=== PATIENT | male | born 1955 | race Caucasian/White ===

== ENCOUNTER 2022-12-01 11:43 | Outpatient (CLI) | payer SELFPAY | END 2022-12-01 11:44 | disposition home or self-care (01) | PROVIDERS: PCP Emergency Medicine; Visit Provider Emergency Medicine | DX: R63.4 Abnormal weight loss (principal); D64.9 Anemia, unspecified; M54.9 Dorsalgia, unspecified; R13.10 Dysphagia, unspecified | CPT/HCPCS: 80076; 82728 ==

== ENCOUNTER 2022-12-02 08:07 | Outpatient (CLI) | payer MEDICAID, SELFPAY | END 2022-12-02 08:08 | disposition home or self-care (01) | LOC: NFLDREF 12-03 10:14 | PROVIDERS: PCP Emergency Medicine; Referring Provider Emergency Medicine; Visit Provider Emergency Medicine | DX: M54.9 Dorsalgia, unspecified (principal); R63.4 Abnormal weight loss; D64.9 Anemia, unspecified | CPT/HCPCS: 87086 ==

== ENCOUNTER 2022-12-06 18:42 | Inpatient (IN) | payer MEDICARE, OTHER, MEDICAID, SELFPAY ==
[2022-12-06 18:55] VITALS: BP 92/61; PULSE 110; RESP 20; TEMP 36.2; O2SAT 97; BMI 15.8
--- NOTE | 2022-12-06 20:02 | ED.GENADULT ---
HPI - General Adult General Time Seen by Provider: 20:02 Date Seen: 12/06/22 Chief complaint: Nausea/Vomiting Stated complaint: Incontinence that is unusual Time Seen by Provider: 12/06/22 19:58 Source: patient, family and RN notes reviewed Limitations: no limitations History of Present Illness HPI narrative: Jeff is a 67-year-old male accompanied by his daughter chula for concern of gagging that is been happening without eating. She endorses that he is scheduled to have an EGD here this week. He is a very cachectic appearing person, they state he has been losing weight. He has had 1 scheduled visit with his primary care provider that he just established with. He is a long-term smoker. He states he had a flu in July, COVID in August, contacted pneumonia after that and is just had generalized decline. He states food tastes good. He endorses some difficulty with swallowing at times, maybe worse lately. His daughter feels that he is gagging the without swallowing. He is quite weak. I did ask about gait abnormalities in it sounds that is more weakness that he is complaining about. He denies any vomiting, no diarrhea, no blood in stools. He has reportedly had some urinary incontinence. He has had a history of alcohol use looking at his records as well. His daughter wants to know if he will be admitted, reviewed with her it depends on the workup. We discussed that gagging may ultimately leading needing the EGD done which I will not be able to do for her chula. Discussed that sometimes patients will need to go on to swallow studies, again this is not emergent procedure. We can take a look at basic labs. With the urinary incontinence possible gait abnormality his smoking history would consider a head CT. We certainly can obtain labs. I have not had a chance to go through his history or records that we have in our system at this point due to the volume and acuity in the ED. Related Data Previous Rx's Medication Instructions Recorded hydrocodone 5 mg-acetaminophen 325 1 tab PO Q4H PRN pain #30 tabs 12/01/22 mg tablet hydrocodone 5 mg-acetaminophen 300 1 tab PO Q4-6H PRN pain #30 tabs 12/02/22 mg tablet Allergies Allergy/AdvReac Type Severity Reaction Status Date / Time Poultry Allergy Severe Verified 12/01/22 11:03 Review of Systems Status of ROS: Reports: 6 or more systems reviewed and unremarkable except as noted in History and below [facility] Medical History (Updated 12/06/22 @ 22:35 by Cindy Coto MD) Acute pain ?R52 - Pain, unspecified (ICD-10) Anemia ?D64.9 - Anemia, unspecified (ICD-10) Back pain ?M54.9 - Dorsalgia, unspecified (ICD-10) Cervical adenopathy ?R59.0 - Localized enlarged lymph nodes (ICD-10) Compression fracture Dysphagia ?R13.10 - Dysphagia, unspecified (ICD-10) Elevated alkaline phosphatase level ?R74.8 - Abnormal levels of other serum enzymes (ICD-10) Elevated liver transaminase level ?R74.01 - Elevation of levels of liver transaminase levels (ICD-10) Hypercalcemia ?E83.52 - Hypercalcemia (ICD-10) Moderate alcohol consumption ?Z78.9 - Other specified health status (ICD-10) Multiple falls ?R29.6 - Repeated falls (ICD-10) Renal insufficiency ?N28.9 - Disorder of kidney and ureter, unspecified (ICD-10) Smokes with greater than 40 pack year history ?F17.210 - Nicotine dependence, cigarettes, uncomplicated (ICD-10) Unintentional weight loss ?R63.4 - Abnormal weight loss (ICD-10) Social History Smoking Status: Current every day smoker How often do you have a drink containing alcohol: never AUDIT-C Alcohol total score: 0 Non-prescribed substance use: denies use Exam Const: Vital Signs, click to edit/add: Vital Signs - 24 hr 12/06/22 18:55 Temperature 97.1 F L Pulse Rate [Pulse Oximeter] 110 H Respiratory Rate 20 Blood Pressure [Ri ght Upper Arm] 92/61 Pulse Oximetry 97 Oxygen Delivery Me thod Room Air Documenting provider has reviewed patient's vital signs: yes Common normals: no apparent distress, oriented x3, no limitations and alert General appearance: cooperative, comfortable, ill appearing and frail appearing Nutritional appearance: cachectic Other: He is alert, conversive, talking and joking with his daughter. Seems bright. HENMT: Common normals: normocephalic, head/scalp atraumatic, hearing grossly normal bilaterally, external ears normal, external nose normal and moist oral mucous membranes Head and scalp: normocephalic and atraumatic Nose: external nose normal External ear: external ears normal Eye: Common normals: PERRL, EOMs intact bilaterally, conjunctivae normal and no scleral icterus Conjunctiva: conjunctiva(e) normal Pupil: PERRL Neck & C-Spine: Common normals: full ROM, no lymphadenopathy, supple and thyroid normal Thyroid: thyroid normal Other: Has clavicles are significantly protruding and skin is sunken around the clavicles, no cervical adenopathy or adenopathy or masses noted around the clavicles or neck area. Chest: Common normals: inspection of chest normal and palpation of chest normal Resp: Common normals: normal respiratory effort, no retractions, no use of accessory muscles and clear to auscultation bilaterally (Distant breath sounds) Auscultation: clear to auscultation bilaterally (Distant breath sounds) Cardio: Common normals: regular rate, regular rhythm, S1 normal heart sound, S2 normal heart sound, no gallops, no clicks and no murmurs Rate: regular rate Rhythm: regular rhythm Heart sounds: S1 normal and S2 normal GI: Common normals: Normal to inspection, nondistended, normoactive bowel sounds present (Caved in abdomen), soft to palpation, non-tender and no hepatosplenomegaly Palpation: soft and no hepatosplenomegaly Extremity: Common normals: no pedal edema Neuro: Common normals: oriented x3 and moves all extremities Sensorium/orientation: alert Course Course Hospital Course: Have reviewed with his daughter that I am unlikely to fix weight loss issues, gagging in this ED visit. We can certainly look into neurological causes, plan on head CT. Will do full compliment of labs. Will have nursing do bladder scan to look for obstructive uropathy (or neurogenic bladder). Reevaluation(s) Reevaluation #1: Have reviewed with patient that the bladder scan is showing over 800ml; plan will be to put Suresh in place. Most common cause of this in his age group would be prostate obstruction. He agrees with plan, admits that he is feeling fullness in pelvic region. Time: 20:48 Consultations Consultation #1: The hospitalist Dr. Carmichael is currently in with the patient. We did review the elevated calcium, cachexia, urinary retention. Once the catheter was in, patient had return of very dark looking urine. He is likely dehydrated. When I did get his calcium level back at 12.1, did order nursing staff for IV placement and a L of IV fluids over 2 hours. This obviously will need more workup. I see his alkaline phosphatase is elevated as well. Have reviewed with Dr. Cavazos the head CT that I ordered, both of us feel at this time it does not need to happen and thus was canceled. Time: 22:32 Vital Signs Vital signs: Initial Vital Signs Temperature 97.1 F L 12/06/22 18:55 Temperature Source Temporal Artery Scan 12/06/22 18:55 Pulse Rate 110 H 12/06/22 18:55 Respiratory Rate 20 12/06/22 18:55 Blood Pressure 92/61 12/06/22 18:55 Blood Pressure Mean 71 12/06/22 18:55 Blood Pressure Position Sitting 12/06/22 18:55 Pulse Oximetry 97 12/06/22 18:55 Oxygen Delivery Method Room Air 12/06/22 18:55 Vital Signs Temperature 97.1 F L 12/06/22 18:55 Pulse Rate 110 H 12/06/22 18:55 Respiratory Rate 20 12/06/22 18:55 Blood Pressure 92/61 12/06/22 18:55 Pulse Oximetry 97 12/06/22 18:55 Oxygen Delivery Method Room Air 12/06/22 18:55 Temperature 97.1 F L 12/06/22 18:55 Pulse Rate 110 H 12/06/22 18:55 Respiratory Rate 20 12/06/22 18:55 Blood Pressure 92/61 12/06/22 18:55 Pulse Oximetry 97 12/06/22 18:55 Oxygen Delivery Method Room Air 12/06/22 18:55 Medical Decision Making Lab Data Lab results reviewed: Yes I reviewed the patient's lab results Labs: Lab Results 12/06/22 12/06/22 Range/Units 20:27 22:07 WBC 11.25 H (4.50-11.00) K/uL RBC 3.21 L (4.30-5.90) m/uL Hgb 10.0 L (13.5-17.5) gm/dL Hct 30.9 L (37.0-53.0) % MCV 96 (80-100) fL MCH 31 (26-34) pg MCHC 32 (32-36) gm/dL RDW Coeff of [place] 19.0 H (11.5-15.5) % Plt Count 226 (140-440) K/uL Neut % (Auto) 78.8 H (42.0-72.0) % Lymph % (Auto) 12.9 L (20-44) % [place] % (Auto) 4.9 (0.0-11.0) % Eos % (Auto) 2.8 (0.0-7.0) % Baso % (Auto) 0.2 (0.0-3.0) % Neut # (Auto) 8.90 H (1.7-7.0) K/uL Lymph # (Auto) 1.50 (0.90-2.90) K/uL [place] # (Auto) 0.60 (0.00-0.90) K/UL Eos # (Auto) 0.30 (0.00-0.50) K/uL Baso # (Auto) 0.00 (0.00-0.30) K/uL Sodium 134 L (135-149) mmol/L Potassium 5.2 H (3.6-5.1) mmol/L Chloride 99 (96-114) mmol/L Carbon Dioxide 25 (20-32) mmol/L BUN 57 H (7-30) mg/dL Creatinine 1.7 H (0.5-1.5) mg/dL Estimated Creat Clear 30.57 Estimated GFR 44 ml/min Glucose 111 (60-115) mg/dL Calcium 12.1 H* (8.4-10.6) mg/dL Total Bilirubin 1.1 (0.1-1.5) mg/dL AST 144 H (12-35) U/L ALT 28 (4-50) U/L Alkaline Phosphatase 468 H (40-150) U/L Total Protein 7.1 (6.0-8.3) g/dL Albumin 3.9 (3.3-5.0) g/dL Urine Color [place] A (Yellow) Urine Appearance Clear (Clear) Urine pH 5.5 (5.0-8.5) Ur Specific [place] 1.025 (1.000-1.030) Urine Protein Trace A (Negative) Urine Glucose (UA) Negative (Negative) Urine Ketones Negative (Negative) Urine Blood Negative (Negative) Urine Nitrite Negative (Negative) Urine Bilirubin 1+ A (Negative) Urine Urobilinogen 0.2 (0.2-1.0) Ur Leukocyte Esterase Negative (Negative) Urine RBC 0-2 (0-2) Urine WBC 0-2 (0-5) Ur Squamous Epith Cells None (None-Few) Other Sediment SPERM (None) Urine Bacteria Few A (None) Discharge Plan Discharge Clinical Impression: Weakness, Hypercalcemia, Acute urinary retention Patient Disposition: Admitted As Inpatient Condition: Unchanged Prescriptions: No Action hydrocodone-acetaminophen 5-325 mg tablet 1 tab PO Q4H PRN (Reason: pain) Qty: 30 0RF hydrocodone-acetaminophen 5-300 mg tablet 1 tab PO Q4-6H PRN (Reason: pain) Qty: 30 0RF Follow Up/Referrals: Lisa Sewell MD [Primary Care Provider] -
[2022-12-06 20:33] LABS: Basophils Percent Auto 0.2 % (0.0-3.0); Eosinophils Percent Auto 2.8 % (0.0-7.0); Hematocrit 30.9 % (37.0-53.0); Immature Granulocytes Pct Auto 0.4 %; Lymphocytes Percent Auto 12.9 % (20-44); Mean Corpuscular HGB Conc 32 gm/dL (32-36); Mean Corpuscular Hemoglobin 31 pg (26-34); Mean Corpuscular Volume 96 fL (80-100); Monocytes Percent Auto 4.9 % (0.0-11.0); Neutrophils Percent Auto 78.8 % (42.0-72.0); Platelet Count* 226 K/uL (140-440); Red Blood Count 3.21 m/uL (4.30-5.90); White Blood Count* 11.25 K/uL (4.50-11.00)
[2022-12-06 20:43] LABS: Slide Review Reflex No
[2022-12-06 20:46] LABS: Albumin* 3.9 g/dL (3.3-5.0); Chloride* 99 mmol/L (96-114)
[2022-12-06 20:47] LABS: Potassium* 5.2 mmol/L (3.6-5.1); Sodium* 134 mmol/L (135-149)
[2022-12-06 20:49] LABS: Alkaline Phosphatase* 468 U/L (40-150); Aspartate Amino Transferase* 144 U/L (12-35); Bilirubin Total* 1.1 mg/dL (0.1-1.5); Carbon Dioxide* 25 mmol/L (20-32); Creatinine* 1.7 mg/dL (0.5-1.5); Est. Creatinine Clearance* 30.57; Estimated Glomerular Filt Rate 44 ml/min; Total Protein* 7.1 g/dL (6.0-8.3)
[2022-12-06 20:50] LABS: Alanine Aminotransferase* 28 U/L (4-50); Blood Urea Nitrogen* 57 mg/dL (7-30); Glucose* 111 mg/dL (60-115)
[2022-12-06 20:56] LABS: Calcium* 12.1 mg/dL (8.4-10.6)
[2022-12-06] MEDS: 0.9 % SODIUM CHLORIDE 1000 ml 1,000 ML 500 ML IV (22:13)
[2022-12-06 22:41] LABS: Appearance Urine Clear (Clear); Bilirubin Urine 1+ (Negative); Blood Urine Negative (Negative); Color Urine Orange (Yellow); Glucose Urine Negative (Negative); Ketones Urine Negative (Negative); Leukocyte Esterase Urine Negative (Negative); Nitrite Urine Negative (Negative); Protein Urine Trace (Negative); Specific Gravity Urine 1.025 (1.000-1.030); Urobilinogen Urine 0.2 (0.2-1.0); pH Urine 5.5 (5.0-8.5)
[2022-12-06 23:02] LABS: Bacteria Urine Few; Other Sediment Urine SPERM; RBC Urine 0-2 (0-2); WBC Urine 0-2 (0-5)
[2022-12-06 23:05] VITALS: PULSE 103
--- NOTE | 2022-12-06 23:21 | PM.IMHP1 ---
Hospitalist- H&P: HPI History of Present Illness Date Seen: 12/06/22 Chief complaint: Incontinence that is unusual Narrative: Jeff Mcgee is a 67 year old male with limited past medical history presenting with multiple concerns have developed since about August of this year. Reports that he had a COVID infection in August of this year. Since then he has lost about 40 lb of weight due to a poor appetite and difficulties with swallowing. He also reports symptoms of heartburn. More recently he has been having troubles with urination and emptying his bladder. He is getting weaker to the point that he is having trouble standing and walking and has had a couple falls recently. 1 of those falls occurred causing a back injury and probable compression fracture at L1. He has also had numbness and pain going into the left buttock perineum and proximal left thigh area. He attributes this to his back injury as well. In September he had a respiratory infection. His daughter gave him some leftover clindamycin which worked and he got better right away. He has not had any recurrent respiratory illness or fevers. Review of Systems Narrative: Patient reports prior to August he was doing quite well. He reports none of his symptoms that he is currently bothered by were significant issues for him prior to August. Multiple symptoms outlined above have developed since then [facility] Medical History (Updated 12/06/22 @ 23:48 by Diaz Carmichael MD) Acute kidney injury superimposed on chronic kidney disease ?N17.9 - Acute kidney failure, unspecified (ICD-10) ?N18.9 - Chronic kidney disease, unspecified (ICD-10) Acute pain ?R52 - Pain, unspecified (ICD-10) Anemia ?D64.9 - Anemia, unspecified (ICD-10) Back pain ?M54.9 - Dorsalgia, unspecified (ICD-10) Cervical adenopathy ?R59.0 - Localized enlarged lymph nodes (ICD-10) Compression fracture Dysphagia ?R13.10 - Dysphagia, unspecified (ICD-10) Elevated alkaline phosphatase level ?R74.8 - Abnormal levels of other serum enzymes (ICD-10) Elevated ferritin ?R79.89 - Other specified abnormal findings of blood chemistry (ICD-10) Elevated liver transaminase level ?R74.01 - Elevation of levels of liver transaminase levels (ICD-10) Hypercalcemia ?E83.52 - Hypercalcemia (ICD-10) Moderate alcohol consumption ?Z78.9 - Other specified health status (ICD-10) Multiple falls ?R29.6 - Repeated falls (ICD-10) Renal insufficiency ?N28.9 - Disorder of kidney and ureter, unspecified (ICD-10) Severe malnutrition ?E43 - Unspecified severe protein-calorie malnutrition (ICD-10) Smokes with greater than 40 pack year history ?F17.210 - Nicotine dependence, cigarettes, uncomplicated (ICD-10) Unintentional weight loss ?R63.4 - Abnormal weight loss (ICD-10) Family History (Updated 12/06/22 @ 23:32 by Diaz Carmichael MD) Mother Coronary artery disease Diabetes Brother Kidney malignancy Social History (Updated 12/06/22 @ 23:33 by Diaz Carmichael MD) Narrative: Patient [place] with his daughter, her partner and her child. Previously smoked 2 packs cigarettes per day but recently has cut down to about a half pack of cigarettes per day. Drinks alcohol fairly regularly. Daughter thinks it is about 2 bottles of wine per week. Smoking Status: Current every day smoker How often do you have a drink containing alcohol: never AUDIT-C Alcohol total score: 0 Non-prescribed substance use: denies use Meds Home Medications and Allergies Home Medication Comments: Occasional use of acetaminophen or aspirin. Recently started on [place] for back pain taking to 5/325 tablets every 6 hours Allergies Allergy/AdvReac Type Severity Reaction Status Date / Time Poultry Allergy Severe Verified 12/01/22 11:03 Exam Narrative: Exam Narrative: He is cachectic appearing. He is able to give his own history with some assistance from his daughter. Head is atraumatic. Eyes are normal. Sclerae nonicteric. Oropharynx with dry mucous membranes. Neck is supple without mass or adenopathy. Respirations are clear to auscultation. He has diminished breath sounds in all lung mcguire. Cardiovascular: S1, S2, regular rate and rhythm. Abdomen: Bowel sounds active. Abdomen is soft without tenderness or mass. External genitalia normal. Suresh catheter is draining a very concentrated urine without marked abnormal sediment or obvious blood. Skin is without rash or breakdown. He moves all 4 extremities well. Strength in his lower extremities is symmetric in hip flexion, knee flexion extension, ankle dorsiflexion and plantar flexion. Deep tendon reflexes are 2/4 at the patellar tendons bilaterally and 1 over 4th the Achilles bilaterally. Subjectively intact sensation in his lower legs. Describes subjectively decreased sensation in left buttock near the perineum and proximal thigh. Const: Vital Signs, click to edit/add: Vital Signs - 24 hr 12/06/22 18:55 Temperature 97.1 F L Pulse Rate [Pulse Oximeter] 110 H Respiratory Rate 20 Blood Pressure [Ri ght Upper Arm] 92/61 Pulse Oximetry 97 Oxygen Delivery Me thod Room Air Documenting provider has reviewed patient's vital signs: yes Hospitalist - H&P: Result Labs Labs: Short CBC 12/06/22 Range/Units 20:27 WBC 11.25 H (4.50-11.00) K/uL Hgb 10.0 L (13.5-17.5) gm/dL Hct 30.9 L (37.0-53.0) % Plt Count 226 (140-440) K/uL BMP 12/06/22 20:27 Sodium 134 L Potassium 5.2 H Chloride 99 Carbon Dioxide 25 BUN 57 H Creatinine 1.7 H Glucose 111 Calcium 12.1 H* Liver Function 12/06/22 Range/Units 20:27 Total Bilirubin 1.1 (0.1-1.5) mg/dL AST 144 H (12-35) U/L ALT 28 (4-50) U/L Alkaline Phosphatase 468 H (40-150) U/L Albumin 3.9 (3.3-5.0) g/dL Urine 12/06/22 Range/Units 22:07 Urine Color [place] A (Yellow) Urine Appearance Clear (Clear) Urine pH 5.5 (5.0-8.5) Ur Specific [place] 1.025 (1.000-1.030) Urine Protein Trace A (Negative) Urine Glucose (UA) Negative (Negative) Assessment and Plan Assessment and plan (1) Severe malnutrition: Status: Acute (2) Hypercalcemia: Problem comment: Check PTH. Concern for bony malignancy Status: Acute (3) Weakness: Status: Acute (4) Acute urinary retention: Problem comment: Will need Suresh catheter and outpatient follow-up. Check PSA. Start tamsulosin Status: Acute (5) Elevated liver transaminase level: Problem comment: Elevated AST may represent liver disease from alcohol or metastatic disease. Status: Acute (6) Elevated alkaline phosphatase level: Problem comment: I favor bony disease over obstructive liver disease. Consider liver imaging Status: Acute (7) Compression fracture: Problem comment: Radiographs from last week show mild L1 compression fracture. At some point may need MRI to better characterize neurologic signs and symptoms as well as pain and looking for metastatic disease Status: Acute (8) Acute kidney injury superimposed on chronic kidney disease: Status: Acute (9) Moderate alcohol consumption: Problem comment: Alcohol withdrawal protocol. With multiple other serious medical problems , including liver disease, advise abstinence Status: Acute (10) Smokes with greater than 40 pack year history: Problem comment: Recommend cessation. Probable underlying COPD Status: Acute (11) Anemia: Problem comment: Needs further assessment. Concern for bone marrow disease Status: Acute (12) Multiple falls: Problem comment: Patient getting quite weak. PT and OT to assess. Status: Acute (13) Dysphagia: Problem comment: Upper GI x-ray initial evaluation. Scheduled for outpatient endoscopy in 3 days Status: Acute (14) Unintentional weight loss: Problem comment: If his nutrition does not improve his overall prognosis is very poor Status: Acute (15) Elevated ferritin: Status: Acute (16) Acute pain: Problem comment: Patient having acute mid back pain in the lower thoracic and upper lumbar spine. I suspect more bone disease than seen on plain films done last week showing mild L1 compression fracture Status: Acute Plan Patient is admitted to the hospital for evaluation of multiple problems noted above. Acutely will need to address hypercalcemia and urinary retention. His severe malnutrition will need at least initial evaluation to understand why he is not eating. I am concerned about bony malignancy with his hypercalcemia, spine pain, anemia. Elevated ferritin may be due to liver disease. Consider imaging of the liver with ultrasound or MRI if evaluating for iron overload. With IV fluids and Suresh catheter expect calcium and creatinine to improve. Needs further evaluation for bone disease. Total time spent today is 90 minutes, 50 minutes in coordination of care and discussing with patient and daughter ongoing evaluation management of these multiple medical problems listed above
[2022-12-06 23:38] VITALS: BP 152/90; PULSE 101; RESP 18; TEMP 36.7; O2SAT 98; BMI 16.1
[2022-12-07] VITALS (7 sets, daily range): BP systolic 101–135; BP diastolic 63–88; PULSE 103–120; RESP 16–18; TEMP 36.6–37.7; O2SAT 94–98; BMI 16.1
--- NOTE | 2022-12-07 | CRLHL7_ITS ---
For Patients: As a result of the Century Cures Act, medical imaging exams and procedure reports are released immediately into your electronic medical record. You may view this report before your referring provider. If you have questions, please contact your health care provider. Technique: Single contrast upper GI performed with water-soluble contrast followed by thin barium. Fluoroscopy time 30 seconds. Indication: swallowing difficulties Comparison: None. Findings: Contrast extends from the oropharynx to the stomach and proximal duodenum without obstruction. No aspiration. Tertiary distal esophageal contractions noted. Impression: No obstruction. Dictated by Osmany Talavera MD @ 12/07/2022 10:07:59 AM (Electronically Signed)
[2022-12-07] MEDS: 0.9 % SODIUM CHLORIDE 1000 ml 1,000 ML 150 ML IV ×3 (00:05→13:57)
[2022-12-07] MEDS: PANTOPRAZOLE SODIUM 40 MG INJ IVP (00:05)
[2022-12-07] MEDS: THIAMINE 100 MG TABLET PO (00:05)
--- NOTE | 2022-12-07 06:06 | PC.NURSE ---
Shift note: Pt arrived at the unit at 2300 on wheelchair accompanied by his daughter. Conscious, alert and oriented but complained of weakness. Vital signs recorded was stable except the heart rate which was above 100. Pt had urinary catheter on arrival which appeared patent but oliguric. N/S 1000ml set up at the rate of 150drop/min as prescribed. Pt has been in bed since admission. Denied any pain, cough and SOB. Lab orders drawn this morning due to downtime of expense. Telemetry reading was sinus tach.
[2022-12-07] MEDS: OMEPRAZOLE 20 MG CAPSULE DR PO (06:29)
[2022-12-07 06:35] LABS: Basophils Absolute Auto 0.02 K/uL (0.00-0.30); Basophils Percent Auto 0.2 % (0.0-3.0); Eosinophils Absolute Auto 0.27 K/uL (0.00-0.50); Eosinophils Percent Auto 2.6 % (0.0-7.0); Hematocrit 28.6 % (37.0-53.0); Hemoglobin* 9.3 gm/dL (13.5-17.5); Immature Granulocytes Abs Auto 0.12 K/uL (0.00-0.30); Immature Granulocytes Pct Auto 1.2 %; Lymphocytes Percent Auto 14.3 % (20-44); Mean Corpuscular HGB Conc 33 gm/dL (32-36); Mean Corpuscular Hemoglobin 32 pg (26-34); Mean Corpuscular Volume 97 fL (80-100); Monocytes Percent Auto 5.7 % (0.0-11.0); Platelet Count* 226 K/uL (140-440); RDW Coefficient of Variation % 19.2 % (11.5-15.5); Red Blood Count 2.94 m/uL (4.30-5.90); White Blood Count* 10.25 K/uL (4.50-11.00)
[2022-12-07 06:40] LABS: Slide Review Reflex No
[2022-12-07 06:48] LABS: Albumin* 3.5 g/dL (3.3-5.0); Chloride* 105 mmol/L (96-114)
[2022-12-07 06:49] LABS: Potassium* 5.7 mmol/L (3.6-5.1); Sodium* 137 mmol/L (135-149)
[2022-12-07 06:51] LABS: Aspartate Amino Transferase* 137 U/L (12-35); Bilirubin Direct* 0.4 mg/dL (0.0-0.5); Bilirubin Total* 1.1 mg/dL (0.1-1.5); Carbon Dioxide* 25 mmol/L (20-32); Creatinine* 1.5 mg/dL (0.5-1.5); Est. Creatinine Clearance* 34.43; Estimated Glomerular Filt Rate 51 ml/min; Total Protein* 6.4 g/dL (6.0-8.3)
[2022-12-07 06:52] LABS: Alanine Aminotransferase* 27 U/L (4-50); Alkaline Phosphatase* 432 U/L (40-150); Blood Urea Nitrogen* 54 mg/dL (7-30); Calcium* 11.4 mg/dL (8.4-10.6); Glucose* 90 mg/dL (60-115); Magnesium* 2.1 mg/dL (1.5-2.6)
[2022-12-07 06:59] LABS: Iron* 58 ug/dL (49-181)
[2022-12-07 07:08] LABS: Percent Iron Saturation 23 % (20-50); Total Iron Binding Capacity 256 ug/dL (261-462)
[2022-12-07 07:13] LABS: Troponin I* < 0.01 ng/mL (0.01-0.04)
[2022-12-07 07:19] LABS: C Reactive Protein* 7.2 mg/dL (0.5-1.0)
[2022-12-07 07:28] LABS: PTH Intact* 8 pg/mL (15-65)
[2022-12-07 07:47] LABS: PSA Diagnostic* 1.64 ng/mL (0.10-4.00)
--- NOTE | 2022-12-07 08:19 | CRLHL7_ITS ---
For Patients: As a result of the 21st Century Cures Act, medical imaging exams and procedure reports are released immediately into your electronic medical record. You may view this report before your referring provider. If you have questions, please contact your health care provider. INDICATION: Weight loss and hypercalcemia COMPARISON: No prior transaxial studies available for comparison TECHNIQUE: CT examination of the chest abdomen and pelvis was performed following the uneventful intravenous administration of 54 cc of Isovue 370. Thin section axial images were obtained from the thoracic inlet through the pubic symphysis. Oral contrast was not administered. Sagittal and coronal reformatted imaging was performed Please note that all CT scans at this facility use dose modulation, iterative reconstruction, and/or weight-based dosing when appropriate to reduce radiation dose to as low as reasonably achievable. FINDINGS: CHEST: There are prominent mediastinal lymph nodes primarily high right paratracheal and pretracheal. These are likely malignant. No pericardial effusion. Significant emphysema. Biapical pleural parenchymal scarring. Very small right upper lobe nodule measuring 3 millimeters which could be a metastatic deposit. There is no definite finding above lung primary. No pleural effusion or pneumothorax. ABDOMEN AND PELVIS: LIVER/BILIARY SYSTEM:There are too numerous to count hepatic masses consistent with metastatic disease to the liver. This does not appear to represent a multifocal hepatocellular carcinoma.The gallbladder appears normal ADRENALS: Difficult to ascertain due to surrounding adenopathy. No obvious adrenal mass KIDNEYS, URETERS and BLADDER:The kidneys appear normal. Suresh catheter in the bladder. The bladder is distended suggesting at either the Suresh is clogged or clamped. SPLEEN:Normal appearance. PANCREAS: Difficult to identify as a separate structure due to surrounding adenopathy. I do question a vague mass in the body and tail of the pancreas on series 2, image 165. RETROPERITONEUM and MESENTERY: Extensive lymphadenopathy in the entirety of the retroperitoneum, the mesentery and the pelvis. GASTROINTESTINAL SYSTEM: There is no evidence of diverticulitis, colitis, mechanical obstruction, or appendicitis. The small bowel as visualized appears normal.No obvious GI primary or mechanical obstruction. PELVIS: No mass, adenopathy or free fluid. OSSEOUS STRUCTURES and ABDOMINAL WALL: Xzv-[id number]-am-count lytic bone lesions. This involves every vertebral body, some of the ribs and extensive areas of the pelvis. There is a pathologic fracture of L1 which is a minor compression deformity with minimal retropulsion of the posterior wall by about 2 millimeters. There is also probably a pathologic fracture of the mid sacrum. No other findings strongly suggesting pathologic fracture. OTHER: No free fluid or free air. Discussed with Dr. Sindy Nascimento at 12:40 p.m. on December 07, 2022 IMPRESSION: 1. CHEST: Significant emphysema. Small right upper lobe nodule could be metastatic. No definite findings of a lung primary. Normal pleural spaces. disease. Extensive lymphadenopathy in the abdomen and pelvis. While this may be due to a lymphoproliferative disorder, the diffuse lytic bone disease described below is more typical of metastatic carcinoma than and lymphoproliferative disorder. I also question fullness of the pancreatic body and tail though this may be a adjacent lymphadenopathy. This raises the possibility of a pancreatic primary 3. OSSEOUS STRUCTURES: Lytic bone disease involving virtually every vertebral body, the sacrum and much of the pelvis. Pathologic fracture of L1 with mild loss of height and minimal retropulsion of the posterior wall. Probably actual or impending pathologic fracture of the mid sacrum. Please note that all CT scans at this facility use dose modulation, iterative reconstruction, and/or weight-based dosing when appropriate to reduce radiation dose to as low as reasonably achievable. Dictated by Tray Lala MD @ 12/07/2022 12:48:29 PM (Electronically Signed)
[2022-12-07 09:19] LABS: Thyroid Stimulating Hormone* 0.892 uIU/mL (0.270-4.20)
[2022-12-07] MEDS: FUROSEMIDE 40 MG TABLET PO (09:28)
[2022-12-07] MEDS: FOLIC ACID 1 MG TABLET PO (09:28)
[2022-12-07] MEDS: MULTIVITAMIN/MINERALS 1 TABLET 1 TAB PO (09:28)
[2022-12-07] MEDS: OXYCODONE 5 MG TABLET PO ×2 (09:28→14:06)
[2022-12-07] MEDS: TAMSULOSIN HCL 0.4 MG CAPSULE PO (09:28)
--- NOTE | 2022-12-07 13:13 | P.IMPN_ITS ---
Progress Note: A&P Assessment and plan (1) Metastatic disease: Problem details: - unknown primary (? lymphoproliferative vs pancreatic) - long discussion with patient and daughter; at this time, Amos does not want to pursue active treatment or diagnostic procedures, will ask SW to see to discuss hospice - given L1 fracture and impending sacral fracture; minimize ambulation, keep murry in, use bedside commode - Fentanyl patch to be placed 12/07 Status: Acute (2) Severe malnutrition: Status: Acute Plan - per above - likely home tomorrow with hospice - daughter Maribel updated at bedside, questions answered Subjective Date Seen: 12/07/22 Interval history: No acute events overnight. Amos has no concerns for the hospitalist team. Given his lab abnormalities and presenting complaint, CT scan of chest abdomen and pelvis was ordered for today. Exam Narrative: Exam Narrative: GEN: Alert and oriented, answering questions appropriately. Cachectic and appears chronically ill HEENT: EOMIs bilaterally, no scleral icterus CV: Mild sinus tachycardia (rate 100s) with soft systolic murmur R: No concerning wheezing Ext: Thin, no concerning edema Skin: No concerning skin lesions or rashes on exposed skin Neuro: Nonfocal Psych: Appropriate Const: Vital Signs, click to edit/add: Vital Signs - 24 hr 12/06/22 18:55 12/06/22 23:05 12/06/22 23:38 Temperature 97.1 F L 98.1 F Pulse Rate 103 H Pulse Rate [Pulse Oximeter] 110 H Pulse Rate [Right Pulse Oximeter] 101 H Respiratory Rate 20 18 Blood Pressure [Ri ght Arm] 152/90 H Blood Pressure [Ri ght Upper Arm] 92/61 Pulse Oximetry 97 98 Oxygen Delivery Me thod Room Air Room Air 12/07/22 03:00 12/07/22 07:15 12/07/22 07:45 Temperature 97.8 F Pulse Rate 103 H Pulse Rate [Pulse Oximeter] Pulse Rate [Right Pulse Oximeter] 103 H 106 H Respiratory Rate 18 18 Blood Pressure [Ri ght Arm] 135/88 Blood Pressure [Ri ght Upper Arm] Pulse Oximetry 98 Oxygen Delivery Me thod Room Air 12/07/22 07:45 Temperature 98.9 F Pulse Rate Pulse Rate [Pulse Oximeter] Pulse Rate [Right Pulse Oximeter] 106 H Respiratory Rate 18 Blood Pressure [Ri ght Arm] 122/71 Blood Pressure [Ri ght Upper Arm] Pulse Oximetry 97 Oxygen Delivery Me thod Room Air Labs Labs: Laboratory Results - last 24 hr 12/06/22 12/06/22 12/07/22 20:27 22:07 06:11 WBC 11.25 H 10.25 RBC 3.21 L 2.94 L Hgb 10.0 L 9.3 L Hct 30.9 L 28.6 L MCV 96 97 MCH 31 32 MCHC 32 33 RDW Coeff of [place]abelle 19.0 H 19.2 H Plt Count 226 226 Neut % (Auto) 78.8 H 76.0 H Lymph % (Auto) 12.9 L 14.3 L [place] % (Auto) 4.9 5.7 Eos % (Auto) 2.8 2.6 Baso % (Auto) 0.2 0.2 Neut # (Auto) 8.90 H 7.80 H Lymph # (Auto) 1.50 1.50 [place] # (Auto) 0.60 0.60 Eos # (Auto) 0.30 0.27 Baso # (Auto) 0.00 0.02 Sodium 134 L 137 Potassium 5.2 H 5.7 H Chloride 99 105 Carbon Dioxide 25 25 BUN 57 H 54 H Creatinine 1.7 H 1.5 Estimated Creat Clear 30.57 34.43 Estimated GFR 44 51 Glucose 111 90 Calcium 12.1 H* 11.4 H Magnesium 2.1 Iron 58 TIBC 256 L % Saturation 23 Total Bilirubin 1.1 1.1 Direct Bilirubin 0.4 AST 144 H 137 H ALT 28 27 Alkaline Phosphatase 468 H 432 H Troponin I < 0.01 L C-Reactive Protein 7.2 H Total Protein 7.1 6.4 Albumin 3.9 3.5 PSA Diagnostic 1.64 TSH 0.892 PTH Intact 8 L Urine Color [place] A Urine Appearance Clear Urine pH 5.5 Ur Specific [place] 1.025 Urine Protein Trace A Urine Glucose (UA) Negative Urine Ketones Negative Urine Blood Negative Urine Nitrite Negative Urine Bilirubin 1+ A Urine Urobilinogen 0.2 Ur Leukocyte Esterase Negative Urine RBC 0-2 Urine WBC 0-2 Ur Squamous Epith Cells None Other Sediment SPERM Urine Bacteria Few A IMPRESSION: 1. CHEST: Significant emphysema. Small right upper lobe nodule could be metastatic disease. No definite findings of a lung primary. Normal pleural spa marielos. 2. Extensive lymphadenopathy in the abdomen and pelvis. While this may be due to a lymphoproliferative disorder, the diffuse lytic bone disease described below is more typical of metastatic carcinoma than and lymphoproliferative disorder. I also question fullness of the pancreatic body and tail though this may be a adjacent lymphadenopathy. This raises the possibility of a pancreatic primary 3. OSSEOUS STRUCTURES: Lytic bone disease involving virtually every vertebral body, the sacrum and much of the pelvis. Pathologic fracture of L1 with mild loss of height and minimal retropulsion of the posterior wall. Probably actual or impending pathologic fracture of the mid sacrum. Please note that all CT scans at this facility use dose modulation, iterative reconstruction, and/or weight-based dosing when appropriate to reduce radiation dose to as low as reasonably achievable. Dictated by Tray Lala MD @ 12/07/2022 12:48:29 PM
[2022-12-07] MEDS: fentaNYL 12 mcg/hr PATCH 1 PATCH TRANSDERMA (13:57)
--- NOTE | 2022-12-07 14:14 | PC.SOCIAL ---
Met with pt. and daughter Tessie to discuss hospice and end of life care. Pt. lives with his daughter Tessie, her partner and grandchild. Pt. is very accepting of his Dx and states he knew he likely had cancer and is not surprised. Eric plans to take FMLA from work to care for pt. She can get additional assistance from her partner and aunt as needed. Pt. prefers [facility] if they have availability. If not they have no preference. Plan is for discharge tomorrow with Hospice and medical equipment.
--- NOTE | 2022-12-07 14:50 | PC.NURSE ---
VSS AND AFEBRILE. REPORTS BACK PAIN AND GENERALIZED PAIN AND RECEIVED OXYCODONE FOR COMFORT. FENTANYL PATCH APPLIED.
--- NOTE | 2022-12-07 16:08 | PC.SOCIAL ---
[facility] has no availability to admit a new patient the rest of this week. A referral was made to [facility] who will admit pt. to hospice tomorrow at 2pm. Updated pt. and his daughter Maribel and she will arrive at 1pm to transport.
[2022-12-07] MEDS: OXYCODONE 5 MG TABLET 10 MG PO (18:25)
[2022-12-07] MEDS: SODIUM CHLORIDE 0.9 % (FLUSH) 10 ML SYRINGE 5 ML IVF (21:17)
--- NOTE | 2022-12-07 22:09 | PC.NURSE ---
End of Shift: Patient pleasant and cooperative. Temp max 99.6. Rating pain in back up to 4/10 and PRN Oxycodone given. Drinking water and clear Ensure throughout shift. Frequent turn and reposition. Suresh patent.
[2022-12-08] MEDS: THIAMINE 100 MG TABLET PO (00:03)
[2022-12-08] MEDS: OXYCODONE 5 MG TABLET 10 MG PO ×3 (01:56→12:47)
[2022-12-08 03:00] VITALS: BP 103/74; PULSE 122; RESP 16; TEMP 37.7; O2SAT 92
[2022-12-08] MEDS: OMEPRAZOLE 20 MG CAPSULE DR PO (06:43)
--- NOTE | 2022-12-08 06:45 | PC.NURSE ---
Shift note: Pt has been in bed throughout the shift. Turned and reposition per requested. Pt assist with reposition. Had one loose incontinent stool. Hypertemia of 100F recorded tonight and Heart rate of 122. Appears cheerful. Pt had adequate sleep. Pain level has been rated at 5 and PRN med given as prescribed.
[2022-12-08 07:30] VITALS: BP 103/76; PULSE 111; RESP 20; TEMP 36.8; O2SAT 96
[2022-12-08] MEDS: MULTIVITAMIN/MINERALS 1 TABLET 1 TAB PO (08:19)
[2022-12-08] MEDS: ACETAMINOPHEN 325 MG TABLET 650 MG PO ×2 (08:20→12:47)
[2022-12-08] MEDS: FOLIC ACID 1 MG TABLET PO (08:20)
[2022-12-08] MEDS: LOPERAMIDE HCL 2 MG CAPSULE 4 MG PO (11:07)
--- NOTE | 2022-12-08 11:57 | PM.DS1 ---
DS: Providers Provider Date Seen: 12/08/22 Date of admission: 12/06/22 23:24 Primary care physician: Lisa Sewell Admitting Clinician: Diaz Carmichael MD Consults: Nutrition, PT, OT, SW Attending Physician on discharge: Cleo Nascimento MD Date of Discharge: 12/08/22 DS: Diagnosis Discharge Diagnosis (1) Metastatic disease: Status: Acute Problem details: - unknown primary (? lymphoproliferative vs pancreatic) - long discussion with patient and daughter on 12/07; at this time, Amos does not want to pursue active treatment or diagnostic procedures, requesting home with hospice - given L1 fracture and impending sacral fracture; minimize ambulation, keep murry in, use bedside commode - Fentanyl patch placed 12/07 (2) Severe malnutrition: Status: Acute Problem details: - with poor appetite; discussed high calorie/high protein supplements DS: Summary Hospital Course Hospital Course: Amos is a very pleasant 67-year-old male who presented to the hospital for evaluation of progressive weight loss, dysphagia, and back pain. He had significantly abnormal labs on admission including DIONICIO, hyperkalemia, hypercalcemia, and elevated alkaline phosphatase. CT scan of chest abdomen pelvis revealed widely metastatic disease, pancreatic verses lymphoproliferative disorder as primary. Given patient's bony metastases, minimal to no ambulation recommended given high risk for pathological fracture. Long discussion was held with his daughter; they ultimately decided against workup or aggressive management; they requested discharge home with hospice care. Status at Discharge Functional status at discharge: wheelchair bound Time Spent with Patient Time attestation: Total time spent providing and/or coordinating discharge services: Time spent: Greater than 30 minutes Exam Narrative: Exam Narrative: Patient is sitting comfortably in bed, he is cachectic Cardiovascular exam exhibits tachycardia without concerning murmurs Lungs are clear to auscultation bilaterally without wheezing Extremities are thin Scattered bruising noted Const: Vital Signs, click to edit/add: Vital Signs - 24 hr 12/07/22 15:00 12/07/22 15:00 12/07/22 15:00 Temperature 99.6 F Pulse Rate 114 H Pulse Rate [Right Pulse Oximeter] 114 H 114 H Respiratory Rate 16 16 Blood Pressure [Ri ght Arm] 101/63 Pulse Oximetry 94 Oxygen Delivery Me thod Room Air 12/07/22 19:00 12/07/22 23:00 12/07/22 23:00 Temperature 99.1 F 100 F H Pulse Rate Pulse Rate [Right Pulse Oximeter] 109 H 120 H 120 H Respiratory Rate 16 16 16 Blood Pressure [Ri ght Arm] 105/64 127/69 Pulse Oximetry 95 94 Oxygen Delivery Me thod Room Air Room Air 12/08/22 03:00 12/08/22 07:30 12/08/22 07:30 Temperature 99.8 F H 98.3 F Pulse Rate Pulse Rate [Right Pulse Oximeter] 122 H 111 H 111 H Respiratory Rate 16 20 20 Blood Pressure [Ri ght Arm] 103/74 103/76 Pulse Oximetry 92 96 Oxygen Delivery Me thod Room Air Room Air DS: Data Data Completed and Pending Labs on day of discharge: Preliminary micro results at discharge 12/06/22 Unknown Urine Culture - Preliminary Urine,Clean Catch No growth. Discharge Plan Discharge Disposition: [facility]- (Hospice) Date of Admission: 12/06/22 23:24 Attending Provider on Discharge: Cleo Nascimento Primary Care Provider: Lisa Sewell Condition: Unchanged Anticipated Discharge Date/Time: 12/08/22 11:53 Discharge Medications: New oxycodone 5 mg Tablet 10 mg PO Q4H PRNQty: 20 0RF fentanyl 12 mcg/hr Patch 72 Hour 1 patch transdermal Q72H Qty: 5 0RF Discontinued hydrocodone-acetaminophen 5-325 mg tablet 1 tab PO Q4H PRN (Reason: pain) Qty: 30 0RF Discharge Orders: Discharge Order (Routine); Ordered 12/08/22 Ordered By: Cleo Nascimento Additional Instructions: Pain medications at pharmacy - hospice will help with the rest of your medications. Imodium 2 tabs every 4-6 hours for diarrhea (can add in LOMOTIL and take 2 of these alternating with 2 Imodium every 3 hours) Activity Level: No Weight Bearing Activity Detail: Minimal weight bearing Discharge Diet: High Protein/High Calorie Follow Up Appointments: Lisa Sewell MD [Primary Care Provider] - Forms: [facility] Info Instructions
[2022-12-08 12:20] VITALS: PULSE 114; RESP 20; TEMP 36.8
--- NOTE | 2022-12-08 14:02 | PC.NURSE ---
PATIENT RECEIVED OXYCODONE AND TYLENOL FOR PAIN WITH MODERATE RELIEF. PATIENT HAS MINIMAL APPETITE BUT DENIES N/V. PATIENT HAVING LOOSE, INCONTINENT STOOLS. UPDATED AND IMMODIUM ADMINISTERED.
--- NOTE | 2022-12-08 14:37 | PC.NURSE ---
SALINE LOCK DC'D. FIGUEROA LEFT IN PLACE FOR DISCHARGE AND DAUGHTER INSTRUCTED ON USE. REVIEWED DC INSTRUCTIONS WITH PATIENT AND DAUGHTER, FREDY. BOTH DENIED QUESTIONS OR CONCERNS. PATIENT DC'D HOME WITH FENTANYL PATCH 12 MCG/HR IN PLACE ON LEFT SHOULDER. PATIENT'S DAUGHTER INSTRUCTED THAT PATCH SHOULD BE CHANGED ON TUESDAY TO ALTERNATING SITE.
== END 2022-12-08 13:19 | disposition hospice, home (50) | DRG 542 ==
LOC: ED 23:17 → MEDSURG 12-07 00:43
PROVIDERS: Family Medicine; Admitting Provider Family Medicine; Emergency Provider Family Medicine; PCP Emergency Medicine; Visit Provider Family Medicine
DX: C79.51 Secondary malignant neoplasm of bone (principal); E43 Unspecified severe protein-calorie malnutrition; N17.9 Acute kidney failure, unspecified; Z68.1 Body mass index [BMI] 19.9 or less, adult; M84.58XA Pathological fracture in neoplastic disease, other specified site, initial encounter for fracture; R64 Cachexia; R53.1 Weakness; R33.9 Retention of urine, unspecified; F17.210 Nicotine dependence, cigarettes, uncomplicated; E83.52 Hypercalcemia; R74.01 Elevation of levels of liver transaminase levels; Z91.81 History of falling; R13.10 Dysphagia, unspecified; E87.5 Hyperkalemia; C80.1 Malignant (primary) neoplasm, unspecified; D64.9 Anemia, unspecified; N18.9 Chronic kidney disease, unspecified; G89.3 Neoplasm related pain (acute) (chronic); F10.10 Alcohol abuse, uncomplicated
CPT/HCPCS: 36415; 51702; 71260; 74177; 74240; 80048; 80053; 80076; 81001; 83540; 83550; 83735; 83970; 84153; 84443; 84484; 85025; 86140; 87086; 94761; 97161; 97165; 97530; 99284; 99285; G0378; A9153; A9270; C9113; J7030; Q9967